=== PATIENT | female | born 1990 | race Caucasian/White ===

== ENCOUNTER 2019-01-22 21:31 | Emergency (ER) | payer MEDICAID, OTHER ==
[~2019-01-22] VITALS: Ht 167.6 cm; Wt 54.4 kg
[2019-01-22 21:37] VITALS: BP 103/68
== END 2019-01-22 22:12 ==
LOC: ER 21:31
DX: Z02.89 Encounter for other administrative examinations (principal); F41.9 Anxiety disorder, unspecified